=== PATIENT | female | born 1995 | race African-American/Black ===

== ENCOUNTER → 2017-02-14 | Outpatient (CLI) | payer OTHER ==
[2014-11-01 00:49] VITALS: BP 142/72
[2017-02-14 12:45] LABS: BASO # 0.1 x10^3/uL (0.0-0.2); BASO % 1 % (0-3); EOS % 3 % (0-3); HEMATOCRIT 36.2 % (36.0-47.0); HEMOGLOBIN 11.6 g/dL (12.0-15.5); LYMPH # 2.1 x10^3/uL (1.0-4.8); LYMPH % 39 % (24-48); MEAN CORPUSCULAR HEMOGLOBIN 26 pg (25-35); MEAN CORPUSCULAR HGB CONC 32 g/dL (31-37); MEAN CORPUSCULAR VOLUME 80 fL (79-100); MONO % 10 % (0-9); NEUT % 47 % (31-73); PLATELET COUNT 240 x10^3/uL (140-400); RED BLOOD COUNT 4.51 x10^6/uL (3.50-5.40); WHITE BLOOD COUNT 5.4 x10^3/uL (4.0-11.0)
[2017-02-14 13:08] LABS: FREE T4 0.92 ng/dL (0.76-1.46)
[2017-02-14 22:14] LABS: FSH 6.8 mIU/mL (.); PROGESTERONE 18.3 ng/mL (.); PROLACTIN 21.8 ng/mL (4.8-23.3); TESTOSTERONE TOTAL 52 ng/dL (8-48)
== END | disposition home or self-care (01) ==
LOC: LAB 11:57
PROVIDERS: ATTEND Obstetrics & Gynecology
DX: Z01.419 Encounter for gynecological examination (general) (routine) without abnormal findings (principal); N93.9 Abnormal uterine and vaginal bleeding, unspecified
CPT/HCPCS: 36415; 82627; 83001; 83036; 84144; 84146; 84403; 84439; 84443; 85025

== ENCOUNTER → 2017-06-10 | Outpatient (CLI) | payer OTHER | END | disposition home or self-care (01) | LOC: US 09:48 | DX: N93.9 Abnormal uterine and vaginal bleeding, unspecified (principal) | CPT/HCPCS: 76830; 76856 ==

== ENCOUNTER 2017-07-17 14:52 | Emergency (ER) | payer OTHER ==
[2017-07-17 15:33] LABS: URINE HCG POC HCG NEGATIVE (Negative)
[2017-07-17 15:59] LABS: BILIRUBIN,URINE NEGATIVE (NEG); CLARITY,URINE CLEAR; COLOR,URINE YELLOW; GLUCOSE,URINE NEGATIVE (NEG); NITRITE,URINE NEGATIVE (NEG); PH,URINE 6.5; PROTEIN,URINE NEGATIVE (NEG-TRACE); UROBILINOGEN,URINE 0.2 mg/dL (0.2 mg/dL)
[2017-07-17] MEDS: IV NORMAL SALINE 1000ML BAG 1,000 ML IV ×2 (16:02)
[2017-07-17] MEDS: ONDANSETRON PF 4 MG/2 ML VIAL. IV ×2 (16:02)
[2017-07-17] MEDS: KETOROLAC 30 MG/ML INJ. IV ×2 (16:02)
[2017-07-17 16:11] LABS: BACTERIA,URINE FEW /HPF (0-FEW); RBC,URINE >40 /HPF (0-2); SQUAMOUS EPITHELIAL CELL,UR MOD /LPF
== END 2017-07-17 17:44 | disposition home or self-care (01) ==
LOC: ER 14:52
DX: R10.30 Lower abdominal pain, unspecified (principal); G89.18 Other acute postprocedural pain; R11.2 Nausea with vomiting, unspecified; E11.9 Type 2 diabetes mellitus without complications; I10 Essential (primary) hypertension; F12.10 Cannabis abuse, uncomplicated; Z88.5 Allergy status to narcotic agent; Z88.8 Allergy status to other drugs, medicaments and biological substances
CPT/HCPCS: 81001; 81025; 87086; 96361; 96374; 96375; 99285-25; J1885; J2405; J7030

== ENCOUNTER → 2017-07-17 | Outpatient (CLI) | payer OTHER ==
[~2017-07-17] MED LIST: CONTRAST GIVEN MC; IOHEXOL 300 MG/ML 100ML VIAL. INT UTERIN
[2017-07-17 10:28] LABS: NEG OBC UR NEG; POS OBC UR POS; U PREG PATIENT NEGATIVE (NEG)
== END | disposition home or self-care (01) ==
LOC: RAD 09:33
DX: N93.8 Other specified abnormal uterine and vaginal bleeding (principal); Z88.6 Allergy status to analgesic agent; Z88.8 Allergy status to other drugs, medicaments and biological substances
CPT/HCPCS: 58340; 74740; 81025